=== PATIENT | male | born 1950 | race Caucasian/White ===

== ENCOUNTER 2018-09-10 09:51 | Day surgery (SDC) | payer MEDICARE, OTHER ==
[~2018-09-10] VITALS: Ht 175.3 cm; Wt 71.6 kg
[2018-09-10 10:38] VITALS: BP 162/87
[2018-09-10] MEDS ORDERED: MELO15TA24 PO (10:44)
[2018-09-10] MEDS ORDERED: LIOT5TAB10 PO (10:44)
[2018-09-10] MEDS ORDERED: LEVO112T4 PO (10:44)
[2018-09-10] MEDS ORDERED: STATIN PO (10:44)
[2018-09-10] MEDS ORDERED: SODIUM CHLORIDE 0.9% 1,000 ML IV SCH (11:23)
[2018-09-10] MEDS ORDERED: LIDOCAINE-MPF 1%, 5ML ONE (11:45)
[2018-09-10] MEDS ORDERED: MIDAZOLAM 1 MG/ML, 5ML ONE (11:45)
[2018-09-10] MEDS ORDERED: FENTANYL PF 100 MCG/2ML ONE (11:45)
[2018-09-10] MEDS ORDERED: FLUMAZENIL 0.1 MG/1 ML, 5ML ONE (11:46)
[2018-09-10] MEDS ORDERED: NALOXONE 1 MG/ML, 2ML ONE (11:46)
[2018-09-10 11:48] LABS: BASOPHILS # (AUTO) 0.03 x10^3/uL (0-0.1); BASOPHILS % (AUTO) 0 % (0-1); EOSINOPHILS # (AUTO) 0.08 x10^3/uL (0-0.4); EOSINOPHILS % (AUTO) 1 % (1-7); LYMPHOCYTES % (AUTO) 27 % (22-44); MD NO; MEAN CORPUSCULAR HEMOGLOBIN 30.5 pg (27.5-34.5); MEAN CORPUSCULAR VOLUME 89.6 fL (81-97); MONOCYTES # (AUTO) 0.61 x10^3/uL (0.2-0.8); MONOCYTES % (AUTO) 10 % (2-9); NEUTROPHILS # (AUTO) 3.62 x10^3/uL (1.8-6.8); NEUTROPHILS % (AUTO) 61 % (42-75); PLATELET COUNT 247 x10^3/uL (130-400); RED BLOOD COUNT 5.31 x10^6/uL (4.38-5.82); RED CELL DISTRIBUTION WIDTH 13.9 % (9.4-14.8)
== END 2018-09-10 13:39 | disposition home or self-care (01) ==
LOC: OUT 09:51 → EDSTATUS 12:00 → OUT 13:39
PROVIDERS: ATTEND Internal Medicine
DX: C91.50 Adult T-cell lymphoma/leukemia (HTLV-1-associated) not having achieved remission (principal); I25.10 Atherosclerotic heart disease of native coronary artery without angina pectoris
CPT/HCPCS: 36415; 38222; 77012; 85025; 85060; 85097; 88237; 88264; 88280; 88305; 88311; 88313; 99156; 99157; J2250; J3010; J2310